=== PATIENT | female | born 1975 | race Caucasian/White ===

== ENCOUNTER 2023-10-10 05:45 | Day surgery (SDC) | payer OTHER ==
[2023-10-01 14:52] VITALS: BP 111/75
[~2023-10-10] VITALS: Ht 172.7 cm; Wt 84.5 kg
--- NOTE | ~2023-10-10 | OR ---
[facility] [address] [facility] [address] [address] [place], [place] [address] Draft DATE OF OPERATION: 10/10/2023 SURGEON: Imani Arita MD PREOPERATIVE DIAGNOSES: Menorrhagia with irregular cycle and CIN2. POSTOPERATIVE DIAGNOSES: Menorrhagia with irregular cycle and CIN2, pending pathology. PROCEDURES: Endocervical curettage, hysteroscopy with resection of thickened endometrium, cone biopsy. ANESTHESIA: MAC. ESTIMATED BLOOD LOSS: Minimal. DRAINS: None. INDICATIONS AND FINDINGS: The patient is a 48-year-old female, who has been having abnormal bleeding. She has very heavy bleeding, which is irregular. Endometrial biopsy revealed proliferative endometrium without hyperplasia. 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 At the time of surgery, exam under anesthesia revealed a top-normal size uterus. It sounded to 10.5 cm. There were no abnormal areas on the external cervix. The endometrium was thickened along the posterior aspect of the fundus as well as the low anterior fundus. DESCRIPTION OF PROCEDURE: The patient was prepped and draped in the dorsal lithotomy position. A weighted speculum was placed. The anterior lip of the cervix was visualized and grasped with a single-tooth tenaculum. An ECC was then done with a moderate amount of tissue found. The cavity was then sounded to 10.5 cm. The endocervical canal was then dilated to a #8 dilator. The MyoSure device was introduced. The thickening was identified and the MyoSure Lite was introduced and the thickened areas resected both posteriorly and anteriorly. There was no evidence of any polyps or any other abnormalities. Following PATIENT NAME: JOSE MIGUEL VALERO OPERATIVE REPORT DATE OF : 77 REPORT #: [id number] PHYSICIAN: IMANI ARITA MD PCP: USAMA GOLDSTEIN MD REPORT IS CONFIDENTIAL AND NOT TO BE RELEASED WITHOUT AUTHORIZATION [facility] [address] [place], [place] [address] Draft this, the hysteroscopy was complete. At this point, stay sutures of 0 Vicryl were placed at 3 and 9 o'clock. The endocervical canal was resected with the knife and the specimen marked at 12 o'clock. The specimen did tear as it was being resected. The initial piece went from 3 to 1 o'clock. This small piece subsequently was separate and that was remaining. There was a tiny piece at 8 o'clock which required separate resection. Following this, the base of the cone was treated with cautery. It was also treated with Monsel's. Following this, the cone appeared hemostatic and the base was packed with Gel-Foam and the stay sutures tied across as well. Tenaculum was removed. There was no evidence of any ongoing bleeding. The patient was taken to the recovery room in good condition. MD UNIQUE Patricia/FOZIA /[id number] Copies: ~ PATIENT NAME: JOSE MIGUEL VALERO OPERATIVE REPORT DATE OF : 77 REPORT #: [id number] PHYSICIAN: IMANI ARITA MD PCP: USAMA GOLDSTEIN MD REPORT IS CONFIDENTIAL AND NOT TO BE RELEASED WITHOUT AUTHORIZATION
[~2023-10-10 05:45] MED LIST: LACTATED RINGER'S 1,000 ML IV SCH
[2023-10-10 06:01] VITALS: BP 104/64
[2023-10-10] MEDS ORDERED: ondansetron HCL 4 MG/2 ML VIAL ONE (06:50)
[2023-10-10] MEDS ORDERED: LIDOCAINE HCL 2% 5 ML SDV ONE (06:50)
[2023-10-10] MEDS ORDERED: ACETAMINOPHEN 1,000 MG/100 ML VIAL ONE (06:50)
[2023-10-10] MEDS ORDERED: fentaNYL citrate 100 MCG/2 ML VIAL ONE (06:50)
[2023-10-10] MEDS ORDERED: propofoL 200 MG/20 ML VIAL ONE ×2 (06:50→07:48)
[2023-10-10] MEDS ORDERED: MIDAZOLAM HCL 2 MG/2 ML VIAL ONE (06:50)
[2023-10-10] MEDS ORDERED: KETOROLAC TROMETHAMINE 30 MG/ML VIAL ONE (06:55)
[2023-10-10] MEDS ORDERED: IBLOOD GLUCOSE TEST STRIP 1 EA TEST VI PRN ×2 (07:00→07:45)
[2023-10-10] MEDS ORDERED: FAMOTIDINE 20 MG/ 2 ML VIAL IV SCH (07:00)
[2023-10-10] MEDS ORDERED: LIDOCAINE HCL 1% 5 ML SDV INJ ONE (07:00)
[2023-10-10] MEDS ORDERED: METOCLOPRAMIDE HCL 10 MG/2 ML SDV IV SCH (07:00)
[2023-10-10] MEDS ORDERED: droPERidol 5 MG/2 ML VIAL IV PRN (07:45)
[2023-10-10] MEDS ORDERED: NALOXONE HCL 0.4 MG SYR IV PRN ×2 (07:45→08:15)
[2023-10-10] MEDS ORDERED: PROCHLORPERAZINE EDISYLATE 10 MG/2 ML VIAL IV PRN ×2 (07:45→08:15)
[2023-10-10] MEDS ORDERED: ondansetron HCL 4 MG/2 ML VIAL IV PRN ×2 (07:45→08:15)
[2023-10-10] MEDS ORDERED: HYDROmorphone HCL 1 MG/ML SYR IV PRN (07:45)
[2023-10-10] MEDS ORDERED: fentaNYL citrate 50 MCG/ML SDV IV PRN (07:45)
--- NOTE | 2023-10-10 08:12 | NUR ---
10/10/23 0812 Alem Trotetr PATIENT ARRIVES IN PACU, UNRESPONSIVE. JAW LIFT REQUIRED FOR ADEQUATE EXCHANGE. PATIENT IS UNRESPONSIVE TO THIS.
[2023-10-10] MEDS ORDERED: MAGNESIUM HYDROXIDE/AL HYDROX 30 ML CUP PO PRN (08:15)
[2023-10-10] MEDS ORDERED: MORPHINE SULFATE 10 MG/ML VIAL IV PRN (08:15)
[2023-10-10] MEDS ORDERED: ondansetron HCL 4 MG TAB PO PRN (08:15)
[2023-10-10] MEDS ORDERED: IBUPROFEN 800 MG TAB PO PRN (08:15)
[2023-10-10] MEDS ORDERED: LACTATED RINGER'S 1,000 ML IV SCH (08:15)
[2023-10-10] MEDS ORDERED: HYDROCODONE/ACETA 5/325 TAB PO PRN (08:15)
[2023-10-10] MEDS ORDERED: METOCLOPRAMIDE HCL 10 MG/2 ML SDV IV PRN (08:15)
[2023-10-10] MEDS ORDERED: FAMOTIDINE 20 MG TAB PO PRN (08:15)
[2023-10-10 09:02] VITALS: BP 110/65
== END 2023-10-10 09:05 | disposition home or self-care (01) ==
LOC: DS 05:45
PROVIDERS: ATTEND Obstetrics & Gynecology
PROC: 0UDB8ZZ Extraction of Endometrium, Via Natural or Artificial Opening Endoscopic (ICD-10-PCS; principal; 2023-10-10 07:30)
DX: D06.0 Carcinoma in situ of endocervix (principal)
CPT/HCPCS: 00952; J0131; J1885; J2001; J2250; J2405; J2704; J2765; J3010; J7121